=== PATIENT | male | born 1955 | race Caucasian/White ===

== ENCOUNTER 2021-08-14 10:32 | Emergency (ER) | payer OTHER, MEDICAID ==
[~2021-08-14] VITALS: Ht 175.3 cm; Wt 104.3 kg
[~2021-08-14 10:32] MED LIST: TRAM50TA1 PO
[2021-08-14 10:45] VITALS: BP 136/70
--- NOTE | 2021-08-14 10:50 | NUR ---
PT TO WAIT IN LOBBY.
--- NOTE | 2021-08-14 10:55 | NUR ---
PT AMBULATED TO BED 08.
--- NOTE | 2021-08-14 11:04 | NUR ---
66 Y/O MALE BIB DAUGHTER C/O LEFT LEG PAIN 2/10 S/P TRIPPING AT HOME AND BUMPING INTO FURNITURE X6DAYS. PT STATES PCP IS ON VACATION AND CAME TO ER FOR EVALUATION. DENIES FEVER/CHILLS, DENIES FEVER/CHILLS. PMH: DM, HTN, HLD, CHRONIC BACK PAIN NKA
[2021-08-14] MEDS ORDERED: CLIN300C2 PO (12:32)
--- NOTE | 2021-08-14 12:39 | NUR ---
Patient discharged with v/s stable. Written and verbal after care instructions given and explained. Patient alert, oriented and verbalized understanding of instructions. Ambulatory with steady gait. All questions addressed prior to discharge. ID band removed. Patient advised to follow up with PMD. Rx of Clindamycin given. Patient educated on indication of medication including possible reaction and side effects. Opportunity to ask questions provided and answered.
== END 2021-08-14 12:39 | disposition home or self-care (01) ==
LOC: MED 10:32
DX: L03.116 Cellulitis of left lower limb (principal); E11.9 Type 2 diabetes mellitus without complications; I10 Essential (primary) hypertension; Z79.899 Other long term (current) drug therapy
CPT/HCPCS: 99283

== ENCOUNTER 2021-08-16 13:40 | Emergency (ER) | payer OTHER, MEDICAID ==
[~2021-08-16] VITALS: Ht 165.1 cm; Wt 108.9 kg
[~2021-08-16 13:40] MED LIST changes: +CLIN300C2 PO
[2021-08-16 13:52] VITALS: BP 134/72
--- NOTE | 2021-08-16 13:57 | NUR ---
PT TO AWAIT IN LOBBY
--- NOTE | 2021-08-16 14:23 | NUR ---
PORTER MORELAND EXAMINING PT
[2021-08-16] MEDS ORDERED: BACI1PAC6 TP (14:38)
[2021-08-16 14:46] VITALS: BP 134/72
--- NOTE | 2021-08-16 14:46 | NUR ---
NO NURSING INTERVENTIONS IMPLEMENTED. PT LEFT WITHOUT DISCHARGE PAPERWORK. Patient discharged with v/s stable. Patient alert, oriented and verbalized understanding of instructions. Ambulatory with steady gait. All questions addressed prior to discharge. ID band removed. Patient advised to follow up with PMD. Rx of BACITRACIN given. Patient educated on indication of medication including possible reaction and side effects. Opportunity to ask questions provided and answered.
== END 2021-08-16 14:46 | disposition home or self-care (01) ==
LOC: MED 13:40
DX: Z48.00 Encounter for change or removal of nonsurgical wound dressing (principal); L03.116 Cellulitis of left lower limb; E11.9 Type 2 diabetes mellitus without complications; I10 Essential (primary) hypertension; Z98.890 Other specified postprocedural states; Z79.2 Long term (current) use of antibiotics; Z79.891 Long term (current) use of opiate analgesic
CPT/HCPCS: 99282